=== PATIENT | male | born 1955 | race Caucasian/White ===

== ENCOUNTER 2016-08-26 10:08 | Emergency (ER) | payer SELFPAY ==
[2016-08-26 10:24] VITALS: BP 142/97
[2016-08-26] MEDS ORDERED: Aspirin Low Dose CHEW TAB* 81 MG PO ONE (10:24)
[2016-08-26] MEDS ORDERED: Nitroglycerin TAB 0.4 MG* 0.4 MG TAB SL ONE (10:32)
--- NOTE | 2016-08-26 10:51 | UC ---
Cardiac HPI - HPI Summary HPI Summary: SEVERAL DAYS OF INTERMITTENT MID STERNAL CP RADIATING DOWN LEFT ARM. HAS ASSOCIATED SOB, NAUSEA, DIZZINESS AND SWEATS. PAIN COMES ON RANDOMLY BOTH AT REST AND WITH EXERTION. BETTER WITH REST. NO PERSONAL H/O CARDIAC DISEASE. PAIN GOT WORSE THIS MORNING AT WORK. - History of Current Complaint Chief Complaint: UCChestPain Stated Complaint: CHEST PAIN Time Seen by Provider: 08/26/16 10:19 Hx Obtained From: Patient Onset/Duration: Gradual Onset, Lasting Days, Still Present Timing: Intermittent Episodes Lasting: Initial Severity: Mild Current Severity: Moderate Pain Intensity: 5 Chest Pain Location: Mid Sternal Character: Tightness Aggravating: Nothing - COMES ON RANDOMLY Alleviating: Rest Associated Signs & Symptoms: Positive: Chest Pain, Dizziness, SOB, Diaphoresis, Nausea/Vomiting - Allergy/Home Medications Allergies/Adverse Reactions: Allergies Allergy/AdvReac Type Severity Reaction Status Date / Time No Known Allergies Allergy Verified 08/26/16 10:18 PMH/Surg Hx/FS Hx/Imm Hx Endocrine History Of: Reports: Dyslipidemia - ELEVATED TG Respiratory History Of: Reports: COPD - Surgical History Surgical History: Yes Surgery Procedure, Year, and Place: left middle finger amputation - Family History Known Family History: Positive: Cardiac Disease - FATHER HAD [place] AGE ~90 - Social History Alcohol Use: Occasionally Substance Use Type: None Smoking Status (MU): Former Smoker - Immunization History Most Recent Tetanus Shot: not sure Review of Systems Constitutional: Negative Skin: Negative Respiratory: Shortness Of Breath Cardiovascular: Chest Pain Gastrointestinal: Other - NAUSEA All Other Systems Reviewed And Are Negative: Yes Physical Exam Triage Information Reviewed: Yes Appearance: Well-Appearing, No Pain Distress, Well-Nourished Vital Signs: Initial Vital Signs Temp 96.5 F 08/26/16 10:19 Pulse 83 08/26/16 10:19 Resp 16 08/26/16 10:19 BP 142/97 08/26/16 10:19 Pulse Ox 98 08/26/16 10:19 Vital Signs Reviewed: Yes Eyes: Positive: Conjunctiva Clear ENT: Positive: Hearing grossly normal Neck: Positive: Supple Respiratory Exam: Normal Cardiovascular Exam: Normal Abdomen Description: Positive: Soft Musculoskeletal: Positive: No Edema Neurological: Positive: Alert Psychological: Positive: Age Appropriate Behavior Skin: Negative: rashes Diagnostics - EKG Cardiac Rate: NL Cardiac Rhythm: Sinus: Normal Ectopy: None ST Segment: Non-Specific - ST-T WAVE FLATTENING LEADS II AND AVF. T WAVE INVERSION LEAD III - Assessment/Plan Course Of Treatment: PT FEELING WORSE WITH NAUSEA AND GAGGING JUST PRIOR TO DEPARTURE. EMS PRESENT. ASA 81MG X 4 AND NTG 0.4MG GIVEN - Differential Diagnoses - Chest Pain Differential Diagnosis/HQI/PQRI: Acute [place], ACS, Angina - Clinical Impression Provider Diagnoses: CHEST PAIN - Physician Notifications Discussed Patient Care With: EDUARDO REZA Time Discussed With Above Provider: 10:30 - DISCUSSED GIVING NTG IN SETTING OF POSSIBLE INFERIOR/RIGHT SIDED ETIOLOGY. GIVEN 5/10 DISCOMFORT WILL GIVE 1 DOSE Instructed by Provider To: Transfer - TO [facility] ER BY AMBULANCE Discharge - Discharge Plan Condition: Guarded Disposition: TRANS HIGHER LVL OF CARE FAC Referrals: Rosario Richard MD [Primary Care Provider] -
== END 2016-08-26 10:51 | disposition short-term general hospital (02) ==
LOC: UCEAST 10:08
DX: R07.89 Other chest pain (principal); R42 Dizziness and giddiness; R06.02 Shortness of breath; R11.2 Nausea with vomiting, unspecified; Z87.891 Personal history of nicotine dependence
CPT/HCPCS: 93005; 99213; A9270-GY; G0463

== ENCOUNTER 2016-08-26 11:12 | Emergency (ER) | payer BC ==
[2016-08-26] MEDS ORDERED: Aspirin Low Dose CHEW TAB* 81 MG PO ONE ×2 (11:40→13:28)
[2016-08-26] MEDS ORDERED: Nitroglycerin 0.4 MG/HR PATCH* (10 MG) TRANSDERM ONE (11:41)
[2016-08-26] MEDS ORDERED: NS 0.9% 1000 ML* 1,000 ML IV ONE (11:43)
[2016-08-26 11:57] LABS: Hematocrit 44 % (42-52); Hemoglobin 14.6 g/dl (14.0-18.0); Mean Corpuscular HGB Conc 33 g/dl (31-36); Mean Corpuscular Hemoglobin 30 pg (27-31); Mean Corpuscular Volume 90 fL (80-94); Mean Platelet Volume 8 um3 (7.4-10.4); Red Blood Count 4.87 10^6/ul (4.0-5.4); Red Cell Distribution Width 13 % (10.5-15); White Blood Count 5.6 10^3/ul (3.5-10.8)
[2016-08-26 12:10] LABS: Albumin 3.7 g/dL (3.2-5.2); BUN/Creatinine Ratio 14.7 (8-20); Calcium 8.8 mg/dL (8.6-10.3); EGFR African American 95.8 (>60); EGFR Non-African American 74.5 (>60); Globulin 2.6 g/dL (2-4); Potassium 4.1 mmol/L (3.5-5.0); Total Bilirubin 0.8 mg/dL (0.2-1.0); Total Protein 6.3 g/dL (6.4-8.9)
[2016-08-26 12:13] LABS: Troponin I 1.19 ng/mL (<0.04)
--- NOTE | 2016-08-26 12:18 | RAD ---
HISTORY: Chest pain COMPARISONS: None VIEWS:1: Single frontal portable view of the chest at 12:11 PM FINDINGS: LINES AND TUBES: None. CARDIOMEDIASTINAL SILHOUETTE: The cardiomediastinal silhouette is normal for portable technique. PLEURA: The costophrenic angles are sharp. No pleural abnormalities are noted. LUNG PARENCHYMA: The lungs are clear. ABDOMEN: The upper abdomen is clear. There is no subphrenic gas. BONES AND SOFT TISSUES: No bone or soft tissue abnormalities are noted. IMPRESSION: NO ACTIVE CARDIOPULMONARY DISEASE.
[2016-08-26] MEDS ORDERED: Heparin DRIP 25,000 UNITS(*) 25,000 UNITS/500 ML BAG IVPB SCH (13:15)
[2016-08-26] MEDS ORDERED: nitroGLYCERIN DRIP* 25,000 MCG in PREMIX* 0 ML IV ONE (13:19)
[2016-08-26] MEDS ORDERED: Diazepam TAB(*) 5 MG PO ONE (13:28)
[2016-08-26] MEDS ORDERED: diPHENhydraMINE PO* 25 MG PO ONE (13:28)
[2016-08-26] MEDS ORDERED: NS 0.9% 1000 ML* 1,000 ML IV SCH (13:30)
[2016-08-26] MEDS ORDERED: Heparin VIAL(*) 5000 UNITS/ML VIAL (FIVE THOUSAND) IV SCH (14:00)
[2016-08-26] MEDS ORDERED: Midazolam* 1 MG/ML 5 ML VIAL (5 MG) ONE (14:37)
[2016-08-26] MEDS ORDERED: fentaNYL* 50 MCG/ML 2 ML VIAL (100 MCG VIAL) ONE (14:37)
[2016-08-26] MEDS ORDERED: Iohexol 350 (CONTRAST) 200 ML MDV IV ONE (14:37)
[2016-08-26] MEDS ORDERED: Heparin 2 UNITS/ML IVPREMIX* 1,000 ML IV ONE (14:38)
[2016-08-26] MEDS ORDERED: Lidocaine 1% INJ* 10 MG/ML 30 ML SDV ONE (14:38)
[2016-08-26 14:44] VITALS: BP 108/84
[2016-08-26] MEDS ORDERED: Ticagrelor* 90 MG TAB PO ONE (15:31)
[2016-08-26] MEDS ORDERED: Heparin 2 UNITS/ML IVPREMIX* 2,000 ML IV ONE (15:51)
--- NOTE | 2016-08-26 19:18 | CONS ---
CARDIOLOGY CONSULTATION AND HISTORY AND PHYSICAL: DATE OF CONSULT: 08/26/16 INDICATION FOR CONSULT: Non-ST segment elevation myocardial infarction. HISTORY OF PRESENT ILLNESS: The patient is a 61-year-old gentleman with a distant history of smoking, who came to the emergency room because of chest pain. The patient states that last week, he was having episodes of chest pain while at work. He did not work over the weekend and did not have any further chest pain. He went to work today and while he was moving heavy objects around , he started having chest pain. His coworker stated he looked pale and uncomfortable. The patient stated he started having numbness in his left arm. He decided to come to the emergency room. On arrival to the emergency room, his EKG was unremarkable; however, his first troponin level was 1.19. In speaking with the patient at this time, he is still having some mild chest heaviness, he would rate it 2/10, maximum his chest pain was 6/10. PAST MEDICAL HISTORY: Significant for hypertriglyceridemia. PAST SURGICAL HISTORY: Tonsils and adenoids as a child, middle finger removal after a trauma. MEDICATIONS: He has been on TriCor in the past. ALLERGIES: No known drug allergies. FAMILY HISTORY: No family history of early coronary artery disease. REVIEW OF SYSTEMS: Negative for fevers or chills. Negative for changes in bowel or bladder habits. Negative for changes in weight. PHYSICAL EXAM: Height is 5 feet 6 inches, weight 235 pounds, heart rate is 74, blood pressure 115/85, respiratory rate is 16, oxygen saturation 99% on room air. Sclerae anicteric. Oropharynx is pink without erythema. Carotids are 2+ without bruits. JVD is normal. Thyroid is normal. Lungs are clear to auscultation. There is no dullness to percussion. Cardiac Exam: S1, S2 without any murmurs, rubs, or gallops. PMI is normal. Abdomen is obese, soft, nontender, nondistended with normoactive bowel sounds. Extremities show no edema. He has 2+ pulses throughout. The patient is awake, alert, and oriented. He moves all 4 extremities equally. DIAGNOSTIC STUDIES/LAB DATA: CBC within normal limits. Chemistries within normal limits. BUN 15, creatinine 1. Troponin 1.19. D-dimer was less than 200. EKG demonstrates normal sinus rhythm with nonspecific ST-T wave abnormalities. Chest x-ray is normal. IMPRESSION: This is a 61-year-old gentleman with little past medical history, who came to the emergency room because of chest pain. The patient's initial troponin level was abnormal of 1.19. The patient continues to have mild chest pain. The patient did receive nitroglycerin patch. The patient's symptoms and laboratory work are consistent with a non-ST segment elevation myocardial infarction. The patient has been given an aspirin, beta blockers. The patient will be started on statin therapy. The patient is recommended to undergo cardiac catheterization. The risks and benefits of this were described in detail. The patient is willing to proceed. RECOMMENDATION: Cardiac catheterization. CC: Dr. Richard* [id number]/[facility] #: [id number] ZULMA
--- NOTE | 2016-08-27 03:27 | TRS ---
TRANSFER SUMMARY: DATE OF ADMISSION: DATE OF TRANSFER: 08/26/16 Transferred to [facility] under the care of Dr. Jarred Lemus. INDICATION FOR TRANSFER: Critical coronary artery disease, non ST segment elevation myocardial infarction. Please see my admission history and physical and consultation for details of the patient's presentation. HISTORY: The patient is a 61-year-old gentleman with a little past medical history. He does have a history of hypertriglyceridemia who has been having chest pain on and off for approximately a week, came to the emergency room this morning with chest pain. His EKG did not show any acute ST changes. His initial troponin level was 1.19. Because of his convincing story and elevated troponin, the patient went directly to the cardiac catheterization lab. 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 In the cardiac catheterization lab, his left ventriculogram revealed normal LV function. He had inferior wall hypokinesis. His ejection fraction was 55%. There was mild mitral regurgitation. His coronary arteries demonstrated that his left main artery had a distal 70% stenosis and his left circumflex artery had an ostial 50% stenosis. His right coronary artery had a mid vessel 99% stenosis with TYRA-2 flow down the remainder of the right coronary artery. The patient was pain free on the table. Consultation was obtained with Dr. Dandre Linda and with Dr. Jarred Lemus regarding care of the patient. The decision was made to transfer the patient to [facility] for urgent coronary artery bypass surgery. The patient will remain on heparin and aspirin upon transfer. The patient is currently pain free. There was some discussion regarding stenting his right coronary artery with a bare metal stent and then coronary artery bypass surgery at some point in the future. However, the seriousness of his left main artery prompted urgent coronary artery bypass surgery. TRANSFER MEDICATIONS: 1. Aspirin 325 a day. 2. Heparin drip. 3. Normal saline at 100 cc per hour. ALLERGIES: None. DISPOSITION: The patient will be transferred to [facility]. This care was discussed with Dr. Lemus. TIME SPENT: Approximately 30 minutes were spent in critical care of the patient and multiple consultations with Dr. Linda and Dr. Lemus. A total of 2 hours were spent in coordination of the care of the patient. [id number]/[facility] #: [id number] [facility]
--- NOTE | 2016-08-27 03:35 | CATH ---
CARDIAC CATHETERIZATION: DATE OF PROCEDURE: 08/26/16 - EMERGENCY DEPT. PROCEDURE: Cardiac catheterization including left ventriculogram and coronary angiography, left heart catheterization. INDICATION: Non-ST segment elevation myocardial infarction, coronary artery disease. HISTORY OF PRESENT ILLNESS: The patient is a 61-year-old male with a history of hypertriglyceridemia, distant history of smoking who came to the emergency room because of crescendo angina and unstable angina. In the emergency room, his EKG showed no acute ischemic changes; however, he did have an elevated troponin level of 1.19. Because of his compelling story and elevated troponin level, cardiac catheterization was recommended. DESCRIPTION OF PROCEDURE: The patient was brought to the cardiac catheterization lab in a fasting state. Informed consent had been obtained prior to the procedure. All labs were reviewed. The patient was placed supine on the catheterization table. Both femoral areas were cleaned and draped in the usual fashion. 1% lidocaine was used for local anesthesia. The right femoral artery was entered by a modified Seldinger technique and a 6-Kuwaiti sheath introducer was placed. The patient underwent left ventriculogram coronary angiography using 6-Ku[place]i pigtail catheter and 6-Kuwaiti JL4 catheter and a 6-Ku[place]i JR4 catheter. At the end of the procedure, the femoral sheath was sewn into position and the patient was ready for transfer to [facility]. The patient tolerated the procedure well with no complications. A total of 2.8 minutes of fluoro time was used. A total of 80 cc of Omnipaque dye was used. FINDINGS: HEMODYNAMICS: Central aortic blood pressure 70/52 with a mean of 60, left ventricular pressure 72/7 with an end-diastolic pressure of 10. LEFT VENTRICULOGRAM: The left ventricle was normal in size and systolic function with estimated ejection fraction 55%. There is mild inferior wall hypokinesis. There is 1+ mitral regurgitation. The ascending aorta and aortic valve appear normal. CORONARY ARTERIES: 1. Left main artery. The left main was normal in size. It bifurcated into the LAD and circumflex. There was a tapering 70% stenosis to the distal left main artery. 2. Left anterior descending artery. 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 The remainder of the vessel and the first diagonal were without disease. 3. Left circumflex artery. The left circumflex artery had an ostial 50% stenosis. The remainder of the vessel was without disease. 4. Right coronary artery. The RCA was a large dominant vessel. It gave off the PDA. The proximal portion of the right coronary artery was without disease. The mid right coronary artery had a 99% stenosis of the right coronary artery with TYRA 2 flow to the remainder of the vessel. IMPRESSION: 1. Normal LV size and systolic function with inferior wall hypokinesis. 2. Critical stenosis to the right coronary artery with TYRA-2 flow after the 99 % stenosis. 3. 70% stenosis to the distal left main artery. RECOMMENDATIONS: The patient will be transferred to [facility] for consideration of urgent bypass surgery given his left main disease and critical right coronary artery. CC: Dr. Richard; Dr. Jarred Lemus, [facility] * [id number]/[facility] #: [id number] ZULMA
--- NOTE | 2016-08-27 16:30 | ED ---
I, Neymar,Quintin, scribed for Albaro Hand MD on 08/26/16 at 1146 . HPI Chest Pain - HPI Summary HPI Summary: This 61 y/o male presents to ED from urgent care for gradually worsening mid sternal CP that started 4 days ago but worse since this AM. CP was 8/10 this morning. CP is alleviated with NTG and now 2/10. Pt also reports nausea, pain/ numbness at LUE, and SOB. Deep breath makes CP worse. PMHx includes COPD and elevated triglycerides. Pt denies any recent stress. Pt is occasional drinker, former smoker, and does not abuse substances. FHx is negative for CAD -- Father had an NH in his 90s. - History of Current Complaint Chief Complaint: ED Time Seen by Provider: 08/26/16 11:15 Hx Obtained From: Patient Onset/Duration: Started Days Ago, Atraumatic, Still Present Timing: Constant Initial Severity: Severe Current Severity: Moderate Pain Intensity: 4 Pain Scale Used: 0-10 Numeric Chest Pain Location: Mid Sternal Chest Pain Radiates: No Character: Dull/Aching Aggravating Factor(s): Deep Breaths Alleviating Factor(s): Medication - NTG Associated Signs and Symptoms: Positive: Chest Pain, Shortness of Breath, Nausea. Negative: Fever - Allergy/Home Medications Allergies/Adverse Reactions: Allergies Allergy/AdvReac Type Severity Reaction Status Date / Time No Known Allergies Allergy Verified 08/26/16 10:18 PMH/Surg Hx/FS Hx/Imm Hx Cardiovascular History: Reports: Other Cardiovascular Problems/Disorders - Elevated TG Respiratory History: Reports: Hx Chronic Obstructive Pulmonary Disease (COPD) - Surgical History Surgery Procedure, Year, and Place: left middle finger amputation Infectious Disease History: No Infectious Disease History: Denies: History Other Infectious Disease, Traveled Outside the [place] in Last 30 Days - Family History Known Family History: Negative: Cardiac Disease - Social History Alcohol Use: Occasionally Hx Substance Use: No Substance Use Type: Reports: None Hx Tobacco Use: Yes Smoking Status (MU): Former Smoker Review of Systems Negative: Fever, Chills Negative: Erythema Negative: Sore Throat Positive: Chest Pain. Negative: Palpitations Positive: Shortness Of Breath Positive: Nausea. Negative: Abdominal Pain Negative: dysuria, hematuria Negative: Myalgia, Edema Neurological: Other - negative for dizziness All Other Systems Reviewed And Are Negative: Yes Physical Exam - Summary Physical Exam Summary: Constitutional: Well-developed, Well-nourished, Alert. (-) Distressed Skin: Warm, Dry HENT: Normocephalic; Atraumatic Eyes: Conjunctiva normal Neck: Musculoskeletal ROM normal neck. (-) JVD, (-) Stridor, (-) Tracheal deviation Cardio: Rhythm regular, rate normal, Heart sounds normal; Intact distal pulses; The pedal pulses are 2+ and symmetric. Radial pulses are 2+ and symmetric. (-) Murmur Pulmonary/Chest wall: Effort normal. (-) Respiratory distress, (-) Wheezes, (-) Rales Abd: Soft, (-) Tenderness, (-) Distension, (-) Guarding, (-) Rebound Musculoskeletal: (-) Edema Lymph: (-) Cervical adenopathy Neuro: Alert, Oriented x3 Psych: Mood and affect Normal Triage Information Reviewed: Yes Vital Signs On Initial Exam: Initial Vitals Temp Pulse Resp BP Pulse Ox 97.6 F 70 14 121/85 97 08/26/16 11:14 08/26/16 11:14 08/26/16 11:14 08/26/16 11:14 08/26/16 11:14 Vital Signs Reviewed: Yes Diagnostics - Vital Signs Vital Signs Temp Pulse Resp BP Pulse Ox 08/26/16 11:14 97.6 F 70 14 121/85 97 - Laboratory Lab Results: Lab Results 08/26/16 08/26/16 08/26/16 Range/Units 11:30 11:30 11:30 WBC 5.6 (3.5-10.8) 10^3/ul RBC 4.87 (4.0-5.4) 10^6/ul Hgb 14.6 (14.0-18.0) g/dl Hct 44 (42-52) % MCV 90 (80-94) fL MCH 30 (27-31) pg MCHC 33 (31-36) g/dl RDW 13 (10.5-15) % Plt Count 244 (150-450) 10^3/ul MPV 8 (7.4-10.4) um3 Neut % (Auto) 69.3 (38-83) % Lymph % (Auto) 17.0 L (25-47) % Fergus % (Auto) 12.1 H (1-9) % Eos % (Auto) 1.0 (0-6) % Baso % (Auto) 0.6 (0-2) % Absolute Neuts (auto) 3.9 (1.5-7.7) 10^3/ul Absolute Lymphs (auto) 1.0 (1.0-4.8) 10^3/ul Absolute Monos (auto) 0.7 (0-0.8) 10^3/ul Absolute Eos (auto) 0.1 (0-0.6) 10^3/ul Absolute Basos (auto) 0 (0-0.2) 10^3/ul Absolute Nucleated RBC 0 10^3/ul Nucleated RBC % 0 D-Dimer, Quantitative (Less Than 230) ng/mL Sodium 136 (133-145) mmol/L Potassium 4.1 (3.5-5.0) mmol/L Chloride 103 (101-111) mmol/L Carbon Dioxide 28 (22-32) mmol/L Anion Gap 5 (2-11) mmol/L BUN 15 (6-24) mg/dL Creatinine 1.02 (0.67-1.17) mg/dL Est GFR ( Amer) 95.8 (>60) Est GFR (Non-Af Amer) 74.5 (>60) BUN/Creatinine Ratio 14.7 (8-20) Glucose 133 H (70-100) mg/dL Lactic Acid 1.4 (0.5-2.0) mmol/L Calcium 8.8 (8.6-10.3) mg/dL Total Bilirubin 0.80 (0.2-1.0) mg/dL AST 28 (13-39) U/L ALT 29 (7-52) U/L Alkaline Phosphatase 79 (34-104) U/L Troponin I 1.19 H* (<0.04) ng/mL Total Protein 6.3 L (6.4-8.9) g/dL Albumin 3.7 (3.2-5.2) g/dL Globulin 2.6 (2-4) g/dL Albumin/Globulin Ratio 1.4 (1-3) 08/26/16 Range/Units 11:30 WBC (3.5-10.8) 10^3/ul RBC (4.0-5.4) 10^6/ul Hgb (14.0-18.0) g/dl Hct (42-52) % MCV (80-94) fL MCH (27-31) pg MCHC (31-36) g/dl RDW (10.5-15) % Plt Count (150-450) 10^3/ul MPV (7.4-10.4) um3 Neut % (Auto) (38-83) % Lymph % (Auto) (25-47) % Fergus % (Auto) (1-9) % Eos % (Auto) (0-6) % Baso % (Auto) (0-2) % Absolute Neuts (auto) (1.5-7.7) 10^3/ul Absolute Lymphs (auto) (1.0-4.8) 10^3/ul Absolute Monos (auto) (0-0.8) 10^3/ul Absolute Eos (auto) (0-0.6) 10^3/ul Absolute Basos (auto) (0-0.2) 10^3/ul Absolute Nucleated RBC 10^3/ul Nucleated RBC % D-Dimer, Quantitative < 200 (Less Than 230) ng/mL Sodium (133-145) mmol/L Potassium (3.5-5.0) mmol/L Chloride (101-111) mmol/L Carbon Dioxide (22-32) mmol/L Anion Gap (2-11) mmol/L BUN (6-24) mg/dL Creatinine (0.67-1.17) mg/dL Est GFR ( Amer) (>60) Est GFR (Non-Af Amer) (>60) BUN/Creatinine Ratio (8-20) Glucose (70-100) mg/dL Lactic Acid (0.5-2.0) mmol/L Calcium (8.6-10.3) mg/dL Total Bilirubin (0.2-1.0) mg/dL AST (13-39) U/L ALT (7-52) U/L Alkaline Phosphatase (34-104) U/L Troponin I (<0.04) ng/mL Total Protein (6.4-8.9) g/dL Albumin (3.2-5.2) g/dL Globulin (2-4) g/dL Albumin/Globulin Ratio (1-3) Result Diagrams: 08/26/16 11:30 08/26/16 11:30 Lab Statement: Any lab studies that have been ordered have been reviewed, and results considered in the medical decision making process. - Radiology CXR Xray Interpretation: No Acute Changes Radiology Interpretation Completed By: Radiologist - EKG 1110 Cardiac Rate: NL - 69 bpm EKG Rhythm: Sinus Rhythm Re-Evaluation - Re-Evaluation 1 Re-Evaluation Time: 13:13 Change: Improved Comment: Discussing lab results with pt, shows NH. Pt mildly improved. 2 out of 10 pain. Chest Pain Course/Dx - Course Course Of Treatment: MDM: A 61 y/o M, with COPD and no prev CAD, presents with mid-sternal CP onset 4 days ago, worsened this AM. EKG is NSR. D-dimer is < 200. CXR shows no acute changes. Trop levels are 1.19 at [address] Baer, whe approved admission. Pt will be sent for cardiac catherization this afternoon. - Diagnoses Provider Diagnoses: NSTEMI (non-ST elevated myocardial infarction) - Provider Notifications Discussed Care Of Patient With: Dr. Baer, cardiology Time Discussed With Above Provider: 13:14 Instructed by Provider To: Admit As Inpatient - Critical Care Time Critical Care Time: 30-74 min - 45 mins Discharge - Discharge Plan Condition: Critical Disposition: ADMITTED TO [facility] Referrals: Rosario Richard MD [Primary Care Provider] - The documentation as recorded by the Neymar gagnon Soohyun accurately reflects the service I personally performed and the decisions made by me, Albaro Hand MD.
== END 2016-08-26 14:45 | disposition short-term general hospital (02) ==
LOC: ED 11:12
DX: I21.4 Non-ST elevation (NSTEMI) myocardial infarction (principal); R07.9 Chest pain, unspecified; R06.02 Shortness of breath; R11.0 Nausea; Z87.891 Personal history of nicotine dependence
CPT/HCPCS: 36415; 71010; 80053; 83605; 84484; 85025; 85379; 93005; 93458; 99285; A9270-GY; C1887; J1644; J2250; J3010

== ENCOUNTER 2016-11-28 07:37 | Emergency (ER) | payer BC ==
[2016-11-28] MEDS ORDERED: Aspirin Low Dose CHEW TAB* 81 MG PO ONE (07:58)
[2016-11-28 07:59] VITALS: BP 118/93
[2016-11-28] MEDS ORDERED: Nitroglycerin TAB 0.4 MG* 0.4 MG TAB SL ONE (07:59)
[2016-11-28] MEDS ORDERED: Nitroglycerin TAB 0.4 MG* 0.4 MG TAB ONE (07:59)
[2016-11-28] MEDS ORDERED: Aspirin Low Dose CHEW TAB* 81 MG ONE (07:59)
--- NOTE | 2016-11-28 08:20 | UC ---
Cardiac HPI - HPI Summary HPI Summary: ONSET OF MID STERNAL/LEFT SIDED CHEST PRESSURE LAST NIGHT WHILE AT REST. HAS BEEN CONSTANT SINCE THEN 01/31. NO RADIATION. H/O 3V CABG 08/27/2016 AT [facility]. 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 CARDIAC REHAB SESSION YESTERDAY. HAS SOME ASSOCIATED SOB BUT NO NAUSEA OR SWEATS. TOOK 2 BABY ASA THIS MORNING. PCP DR. RICHARD. 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 - History of Current Complaint Chief Complaint: UCChestPain Stated Complaint: CHEST PAIN Time Seen by Provider: 11/28/16 07:39 Hx Obtained From: Patient Onset/Duration: Sudden Onset Timing: Constant Initial Severity: Moderate Current Severity: Moderate Pain Intensity: 6 Chest Pain Location: Mid Sternal, Left Anterior Character: Pressure/Squeezing Aggravating: Movement Alleviating: Nothing Associated Signs & Symptoms: Positive: Chest Pain, SOB. Negative: Diaphoresis, Nausea/Vomiting, Cough, Back Pain - Allergy/Home Medications Allergies/Adverse Reactions: Allergies Allergy/AdvReac Type Severity Reaction Status Date / Time Seasonal and Environmental Allergy Congestion Uncoded 11/28/16 08:00 ALlergie Home Medications: Home Medications Aspirin [Aspirin 81 MG TAB] 3 tab PO DAILY 11/28/16 [History Confirmed 11/28/16] Atorvastatin* [Lipitor 40 MG*] 1 tab PO DAILY 11/28/16 [History Confirmed ] Fexofenadine (NF) [Linda 180 (NF)] 1 tab PO DAILY PRN 11/28/16 [History Confirmed 11/28/16] Fluticasone-Salmeterol 250-50* [Advair Diskus 250-50*] 1 puff INH BID 11/28/16 [ History Confirmed 11/28/16] Metoprolol Tartrate TAB* [Lopressor TAB*] 1 tab PO BID 11/28/16 [History Confirmed 11/28/16] PMH/Surg Hx/FS Hx/Imm Hx Endocrine History Of: Reports: Dyslipidemia - ELEVATED TG Denies: Diabetes, Thyroid Disease Cardiovascular History Of: Reports: Cardiac Disorders - triple bypass, [place] Denies: Hypertension Respiratory History Of: Reports: COPD, Asthma GI/ History Of: Denies: Ulcer - Surgical History Surgical History: Yes Surgery Procedure, Year, and Place: left middle finger amputation. Triple Bypass. tonsillectomy - Family History Known Family History: Positive: Cardiac Disease - Social History Alcohol Use: Rare Substance Use Type: None Smoking Status (MU): Former Smoker When Did the Patient Quit Smoking/Using Tobacco: 10 years ago - Immunization History Most Recent Influenza Vaccination: 2015/2016 season Most Recent Tetanus Shot: not sure Review of Systems Constitutional: Negative Respiratory: Shortness Of Breath Cardiovascular: Chest Pain Gastrointestinal: Negative All Other Systems Reviewed And Are Negative: Yes Physical Exam Triage Information Reviewed: Yes Appearance: Well-Appearing, No Pain Distress, Well-Nourished Vital Signs: Initial Vital Signs Temp 96.1 F 11/28/16 07:42 Pulse 79 11/28/16 07:42 Resp 18 11/28/16 07:42 BP 118/93 11/28/16 07:42 Pulse Ox 97 11/28/16 07:42 Vital Signs Reviewed: Yes Eyes: Positive: Conjunctiva Clear ENT: Positive: Hearing grossly normal Neck: Positive: Supple Respiratory Exam: Normal Cardiovascular Exam: Normal Abdomen Description: Positive: Soft Musculoskeletal: Positive: No Edema Neurological: Positive: Alert. Negative: Muscle Tone Normal Psychological: Positive: Age Appropriate Behavior Skin: Negative: rashes Diagnostics - EKG Cardiac Rate: NL - 77 BPM Cardiac Rhythm: Sinus: Normal Ectopy: PVCs ST Segment: Normal - Differential Diagnoses - Chest Pain Differential Diagnosis/HQI/PQRI: Acute [place], ACS, Angina, Chest Wall - Clinical Impression Provider Diagnoses: CHEST PAIN - Physician Notifications Discussed Patient Care With: DR. COREAS Time Discussed With Above Provider: 08:00 - TO [facility] [place]ULANCE Instructed by Provider To: Will See In ED Discharge - Discharge Plan Condition: Stable Disposition: TRANS [facility] CARE [facility] Referrals: Rosario Richard MD [Primary Care Provider] -
[2016-11-28] MEDS ORDERED: NS 0.9% 250 ML* 250 ML IV SCH (09:00)
== END 2016-11-28 08:20 | disposition short-term general hospital (02) ==
LOC: UCEAST 07:37
DX: R07.9 Chest pain, unspecified (principal); E78.5 Hyperlipidemia, unspecified; J44.9 Chronic obstructive pulmonary disease, unspecified; Z87.891 Personal history of nicotine dependence; Z79.82 Long term (current) use of aspirin
CPT/HCPCS: 93005; 99214; A9270-GY; G0463

== ENCOUNTER 2016-11-28 08:35 | Observation (INO) | payer BC ==
[2016-11-28 09:15] LABS: Hematocrit 40 % (42-52); Hemoglobin 13.2 g/dl (14.0-18.0); Mean Corpuscular HGB Conc 33 g/dl (31-36); Mean Corpuscular Hemoglobin 28 pg (27-31); Mean Corpuscular Volume 86 fL (80-94); Mean Platelet Volume 8 um3 (7.4-10.4); Red Blood Count 4.66 10^6/ul (4.0-5.4); Red Cell Distribution Width 16 % (10.5-15); White Blood Count 6.8 10^3/ul (3.5-10.8)
[2016-11-28 09:26] LABS: BUN/Creatinine Ratio 18.3 (8-20); Calcium 9.3 mg/dL (8.6-10.3); EGFR African American 123.3 (>60); EGFR Non-African American 95.8 (>60); Globulin 2.4 g/dL (2-4); Potassium 4.1 mmol/L (3.5-5.0); Total Bilirubin 0.9 mg/dL (0.2-1.0); Total Protein 6.4 g/dL (6.4-8.9)
--- NOTE | 2016-11-28 09:26 | RAD ---
INDICATION: Chest pain. COMPARISON: Comparison is made with a prior chest x-ray study from August 26, 2016. TECHNIQUE: A portable view of the chest was obtained. FINDINGS: The patient has had coronary artery bypass surgery since the prior study. Note is made of multiple sternal sutures and mediastinal clips. The heart is within normal limits in size although appears slightly more prominent than on the prior exam. There is slight hazy density which projects over the left heart border extending superiorly toward the aorta likely representing post surgical changes although nonspecific. The lungs are clear. No pleural effusion is seen. The results of this exam were discussed with the referring clinician. IMPRESSION: MILD HAZY DENSITY OVER THE CARDIAC REGION RECOMMEND PA AND LATERAL CHEST FILMS FOR FURTHER EVALUATION.
[2016-11-28 09:29] LABS: Troponin I 0.01 ng/mL (<0.04)
[2016-11-28 09:39] LABS: T4 7.42 g/dL (6.09-12.23)
[2016-11-28 09:40] LABS: TSH (Thyroid Stimulating Horm) 1.1 mcIU/mL (0.34-5.60)
--- NOTE | 2016-11-28 09:51 | RAD ---
INDICATION: Chest pain. Previous coronary artery bypass in August 2016. Chronic obstructive pulmonary disease. Indeterminate haziness over the LEFT heart margin on portable chest radiograph of the same date. COMPARISON: 0758 hours report of a chest radiograph of the same date. TECHNIQUE: Dual energy PA and routine lateral views of the chest were obtained. REPORT: LEFT epicardial fat pad noted. No focal pulmonary lesion, alveolar consolidation, pleural effusion, pneumothorax. Median sternotomy wires. Mediastinal vascular clips. Negative for cardiomegaly. Unremarkable central pulmonary vasculature. Unremarkable contour of the thoracic aorta accounting for mild S-shaped curve of the spine convex to the RIGHT superiorly and to the LEFT in the mid to distal segment. IMPRESSION: No radiographic evidence for presence of an acute cardiac or pulmonary process. Postsurgical change of coronary artery bypass.
[2016-11-28 10:59] LABS: Urine Bilirubin Negative (Negative); Urine Glucose Negative (Negative); Urine Nitrite Negative (Negative)
[2016-11-28] MEDS ORDERED: Ondansetron INJ* 2 MG/ML VIAL IV PRN (11:42)
[2016-11-28] MEDS ORDERED: Acetaminophen TAB* 325 MG PO PRN (11:42)
[2016-11-28] MEDS ORDERED: Cetirizine* 10 MG TAB PO PRN (11:44)
--- NOTE | 2016-11-28 12:23 | ED ---
Denzel Mccarthy Alok, scribed for Gaurav Suresh MD on 11/28/16 at 0846 . HPI Chest Pain - HPI Summary HPI Summary: 61 y/o male presents to the ED for CP starting last night at 2100. Pt states that he last had triple bypass surgery 3 months ago and that today his CP is right along that surgical incision at the mid-sternal without radiation to other parts of the body. Pt states that his pain feels different from a [place] and feels more "muscular". His pain registers at a 2 out of 10 in severity and is aggravated by arm movement and alleviated while arms are at rest. Pt also took NTG and aspirin which alleviated CP somewhat. Pt also notes SOB. Pt denies nausea, dizziness, or diaphoresis. - History of Current Complaint Chief Complaint: EDChestPainROMI Hx Obtained From: Patient Onset/Duration: Started Hours Ago, Atraumatic, Still Present Timing: Constant Initial Severity: Moderate Current Severity: Moderate Pain Intensity: 2 Pain Scale Used: 0-10 Numeric Chest Pain Location: Discrete at:, Mid Sternal Chest Pain Radiates: No Character: Other: - "Muscular" Aggravating Factor(s): Movement Alleviating Factor(s): Rest, NTG 123, OTC Meds - Aspirin Associated Signs and Symptoms: Positive: Chest Pain, Shortness of Breath. Negative: Dizziness, Diaphoresis, Nausea - Allergy/Home Medications Allergies/Adverse Reactions: Allergies Allergy/AdvReac Type Severity Reaction Status Date / Time Seasonal and Environmental Allergy Congestion Uncoded 11/28/16 08:49 ALlergie PMH/Surg Hx/FS Hx/Imm Hx Endocrine/Hematology History: Denies: Hx Diabetes, Hx Thyroid Disease Cardiovascular History: Reports: Other Cardiovascular Problems/Disorders - Elevated TG Denies: Hx Hypertension Respiratory History: Reports: Hx Asthma, Hx Chronic Obstructive Pulmonary Disease (COPD) GI History: Denies: Hx Ulcer - Surgical History Surgery Procedure, Year, and Place: left middle finger amputation. Triple Bypass. tonsillectomy Infectious Disease History: Denies: Hx Clostridium Difficile, Hx Hepatitis, Hx Human Immunodeficiency Virus (HIV), Hx of Known/Suspected MRSA, Hx Shingles, Hx Tuberculosis, Hx Known/ Suspected VRE, Hx Known/Suspected VRSA, History Other Infectious Disease, Traveled Outside the [place] in Last 30 Days - Family History Known Family History: Negative: Cardiac Disease - Social History Occupation: Employed Full-time Lives: With Family - Alcohol Use: Rare Hx Substance Use: No Substance Use Type: Reports: None Hx Tobacco Use: Yes Smoking Status (MU): Former Smoker Review of Systems Negative: Fever, Skin Diaphoresis Positive: Chest Pain Positive: Shortness Of Breath Negative: Nausea Neurological: Other - Negative: Dizziness All Other Systems Reviewed And Are Negative: Yes Physical Exam - Summary Physical Exam Summary: VITAL SIGNS: Reviewed. GENERAL: ~Patient is a well developed and nourished male who is lying comfortable in the stretcher. ~Patient is not in any acute respiratory distress. HEAD AND FACE: Normocephalic EYES: PERRLA, EOMI x 2. EARS: Hearing grossly intact. MOUTH: Oropharynx within normal limits. NECK: Supple, trachea is midline, no adenopathy, no JVD, no carotid bruit. CHEST: Well healed scar center of chest. Positive tenderness to palpation. LUNGS: Clear to auscultation bilaterally. No wheezing or crackles. CVS: Regular rate and rhythm, S1 and S2 present, no murmurs or gallops appreciated. ABDOMEN: Soft, non-tender. Bowel sounds are normal. No abdominal abnormal pulsations. EXTREMITIES: Full ROM in all major joints, no edema, no cyanosis or clubbing. NEURO: Alert and oriented x 3. No acute neurological deficits. Speech is normal and follows commands. SKIN: Dry and warm Triage Information Reviewed: Yes Vital Signs On Initial Exam: Initial Vitals Temp Pulse Resp BP Pulse Ox 97.4 F 73 16 114/86 98 11/28/16 08:37 11/28/16 08:37 11/28/16 08:37 11/28/16 08:37 11/28/16 08:37 Vital Signs Reviewed: Yes Diagnostics - Vital Signs Vital Signs Temp Pulse Resp BP Pulse Ox 11/28/16 08:37 97.4 F 73 16 114/86 98 - Laboratory Lab Results: Lab Results 11/28/16 11/28/16 11/28/16 Range/Units 08:05 08:05 08:05 WBC 6.8 (3.5-10.8) 10^3/ul RBC 4.66 (4.0-5.4) 10^6/ul Hgb 13.2 L (14.0-18.0) g/dl Hct 40 L (42-52) % MCV 86 (80-94) fL MCH 28 (27-31) pg MCHC 33 (31-36) g/dl RDW 16 H (10.5-15) % Plt Count 270 (150-450) 10^3/ul MPV 8 (7.4-10.4) um3 Neut % (Auto) 65.8 (38-83) % Lymph % (Auto) 21.6 L (25-47) % Reeves % (Auto) 9.1 H (1-9) % Eos % (Auto) 2.9 (0-6) % Baso % (Auto) 0.6 (0-2) % Absolute Neuts (auto) 4.4 (1.5-7.7) 10^3/ul Absolute Lymphs (auto) 1.5 (1.0-4.8) 10^3/ul Absolute Monos (auto) 0.6 (0-0.8) 10^3/ul Absolute Eos (auto) 0.2 (0-0.6) 10^3/ul Absolute Basos (auto) 0 (0-0.2) 10^3/ul Absolute Nucleated RBC 0 10^3/ul Nucleated RBC % 0.1 INR (Anticoag Therapy) 0.96 (0.89-1.11) APTT 32.0 (26.0-36.3) seconds Sodium 137 (133-145) mmol/L Potassium 4.1 (3.5-5.0) mmol/L Chloride 104 (101-111) mmol/L Carbon Dioxide 26 (22-32) mmol/L Anion Gap 7 (2-11) mmol/L BUN 15 (6-24) mg/dL Creatinine 0.82 (0.67-1.17) mg/dL Est GFR ( Amer) 123.3 (>60) Est GFR (Non-Af Amer) 95.8 (>60) BUN/Creatinine Ratio 18.3 (8-20) Glucose 108 H (70-100) mg/dL Lactic Acid (0.5-2.0) mmol/L Calcium 9.3 (8.6-10.3) mg/dL Magnesium 2.0 (1.9-2.7) mg/dL Total Bilirubin 0.90 (0.2-1.0) mg/dL AST 18 (13-39) U/L ALT 22 (7-52) U/L Alkaline Phosphatase 88 (34-104) U/L Total Creatine Kinase 102 (10-223) U/L CK-MB (CK-2) 3.3 (0.6-6.3) ng/mL Troponin I 0.01 (<0.04) ng/mL B-Natriuretic Peptide ( - 100) pg/mL Total Protein 6.4 (6.4-8.9) g/dL Albumin 4.0 (3.2-5.2) g/dL Globulin 2.4 (2-4) g/dL Albumin/Globulin Ratio 1.7 (1-3) TSH 1.10 (0.34-5.60) mcIU/mL Thyroxine (T4) 7.42 (6.09-12.23) g/dL Urine Color Urine Appearance Urine pH (5-9) Ur Specific [place] (1.010-1.030) Urine Protein (Negative) Urine Ketones (Negative) Urine Blood (Negative) Urine Nitrate (Negative) Urine Bilirubin (Negative) Urine Urobilinogen (Negative) Ur Leukocyte Esterase (Negative) Urine Glucose (Negative) 11/28/16 11/28/16 11/28/16 Range/Units 08:05 08:05 10:37 WBC (3.5-10.8) 10^3/ul RBC (4.0-5.4) 10^6/ul Hgb (14.0-18.0) g/dl Hct (42-52) % MCV (80-94) fL MCH (27-31) pg MCHC (31-36) g/dl RDW (10.5-15) % Plt Count (150-450) 10^3/ul MPV (7.4-10.4) um3 Neut % (Auto) (38-83) % Lymph % (Auto) (25-47) % Reeves % (Auto) (1-9) % Eos % (Auto) (0-6) % Baso % (Auto) (0-2) % Absolute Neuts (auto) (1.5-7.7) 10^3/ul Absolute Lymphs (auto) (1.0-4.8) 10^3/ul Absolute Monos (auto) (0-0.8) 10^3/ul Absolute Eos (auto) (0-0.6) 10^3/ul Absolute Basos (auto) (0-0.2) 10^3/ul Absolute Nucleated RBC 10^3/ul Nucleated RBC % INR (Anticoag Therapy) (0.89-1.11) APTT (26.0-36.3) seconds Sodium (133-145) mmol/L Potassium (3.5-5.0) mmol/L Chloride (101-111) mmol/L Carbon Dioxide (22-32) mmol/L Anion Gap (2-11) mmol/L BUN (6-24) mg/dL Creatinine (0.67-1.17) mg/dL Est GFR ( Amer) (>60) Est GFR (Non-Af Amer) (>60) BUN/Creatinine Ratio (8-20) Glucose (70-100) mg/dL Lactic Acid 0.8 (0.5-2.0) mmol/L Calcium (8.6-10.3) mg/dL Magnesium (1.9-2.7) mg/dL Total Bilirubin (0.2-1.0) mg/dL AST (13-39) U/L ALT (7-52) U/L Alkaline Phosphatase (34-104) U/L Total Creatine Kinase (10-223) U/L CK-MB (CK-2) (0.6-6.3) ng/mL Troponin I (<0.04) ng/mL B-Natriuretic Peptide 33 ( - 100) pg/mL Total Protein (6.4-8.9) g/dL Albumin (3.2-5.2) g/dL Globulin (2-4) g/dL Albumin/Globulin Ratio (1-3) TSH (0.34-5.60) mcIU/mL Thyroxine (T4) (6.09-12.23) g/dL Urine Color Yellow Urine Appearance Clear Urine pH 5.0 (5-9) Ur Specific [place] 1.023 (1.010-1.030) Urine Protein Negative (Negative) Urine Ketones Trace H (Negative) Urine Blood Negative (Negative) Urine Nitrate Negative (Negative) Urine Bilirubin Negative (Negative) Urine Urobilinogen Negative (Negative) Ur Leukocyte Esterase Negative (Negative) Urine Glucose Negative (Negative) Result Diagrams: 11/28/16 08:05 11/28/16 08:05 Lab Statement: Any lab studies that have been ordered have been reviewed, and results considered in the medical decision making process. - Radiology CXR 0841 Xray Interpretation: Positive (See Comments) - IMPRESSION: MILD HAZY DENSITY OVER THE CARDIAC REGION RECOMMEND PA AND LATERAL CHEST FILMS FOR FURTHER EVALUATION. Radiology Interpretation Completed By: Radiologist CXR 0921 Xray Interpretation: Positive (See Comments) - IMPRESSION: No radiographic evidence for presence of an acute cardiac or pulmonary process. Postsurgical change of coronary artery bypass. Radiology Interpretation Completed By: Radiologist - EKG 0832 Cardiac Rate: NL EKG Rhythm: Sinus Rhythm - 73 bpm EKG Interpretation: No ST elevation. Q-wave in II and aVF Chest Pain Course/Dx - Course Course Of Treatment: 61 y/o male presents to the ED for CP starting last night at 2100. Pt states that he last had triple bypass surgery 3 months ago and that today his CP is right along that surgical incision at the mid-sternal without radiation to other parts of the body. Pt states that his pain feels different from a [place] and feels more "muscular". His pain registers at a 2 out of 10 in severity and is aggravated by arm movement and alleviated while arms are at rest. Pt also took NTG and aspirin which alleviated CP somewhat. Pt also notes SOB. Pt denies nausea, dizziness, or diaphoresis. Assessment/Plan: Blood work wnl except for mild anemia. Troponin is 0.01. UA is negative. CXR IMPRESSION: MILD HAZY DENSITY OVER THE CARDIAC REGION RECOMMEND PA AND LATERAL CHEST FILMS FOR FURTHER EVALUATION. 2nd CXR requested by Dr. Dalal (Radiology). IMPRESSION: No radiographic evidence for presence of an acute cardiac or pulmonary process. Postsurgical change of coronary artery bypass. Patients pain was resolved with ASA and nitroglycerin given at the . At this time he is asymptomatic. Because of his comorbidities I discuss my physical exam, findings and test results with Dr. Gardner from the hospitalist services and she agrees to admit patient to his services. Patient is hemodynamically stable alert and oriented x 3. - Chest Pain Differential Diagnosis/HQI/PQRI: Acute [place], ACS, Angina, CHF, Chest Wall, GI Disease, Lower Respiratory Infection - Diagnoses Provider Diagnoses: Chest pain r/o ACS - Provider Notifications Discussed Care Of Patient With: Dr. Dalal (Radiology) @ 09 Discharge - Discharge Plan Condition: Stable Disposition: ADMITTED TO [facility] documentation as recorded by the Denzel gagnon Alok accurately reflects the service I personally performed and the decisions made by , Gaurav Suresh MD.
[2016-11-28] MEDS ORDERED: Heparin VIAL(*) 5000 UNITS/ML VIAL (FIVE THOUSAND) SUBCUT SCH (14:00)
--- NOTE | 2016-11-28 15:03 | HP ---
HISTORY AND PHYSICAL: DATE OF ADMISSION: 11/28/16 PRIMARY CARE PROVIDER: Dr. Richard. PRIMARY FRONT OFFICE HELP: Dr. Yuniel Baer. MY ATTENDING PHYSICIAN WHILE IN THE HOSPITAL: Dr. Dina Bhatt* (report dictated by Gregor Gordon NP). CHIEF COMPLAINT: Chest pain. HISTORY OF PRESENT ILLNESS: Mr. Clancy is a 61-year-old male patient who was recently here in the beginning of August, underwent a heart catheterization, found to have triple-vessel disease, went to [facility] and received the CABG, triple bypass. He had been doing well with [facility]. He has been doing well with his rehab. In addition to this, he actually was cleared for work beginning of this week. He says that he had not been having any chest pain with the exception he noticed at times at work that he would get some chest heaviness and sometimes shortness of breath particularly if he was lifting anything. When he stopped doing what he was doing and he sat down, the discomfort went away. He noticed today and last night. He went to [facility], did his workout, and he also went to work afterwards, and he noticed around 2100 last night, he had chest discomfort that was constant throughout the entire night, worse when he moved his arms and he had tenderness in his chest; however, he was concerned because the discomfort was near where he had chest discomfort previously and it was not nearly as intense, so he went to Urgent Care today. He received nitro and aspirin and the pain went away and he was sent to the hospital for further evaluation. He denies any chest pain currently. He says he is feeling well and he does say that his chest feels tender when he touches it. He states that the pain was mostly that he had was right at the incision and did not radiate down the arm, he had no associated shortness of breath or nausea or any diaphoresis. He came in. Unfortunately, we tried to set up a stress test but he had drunk coffee and had taken his metoprolol already today, so we are unable to do stress test. The hospitalist service though was asked to evaluate because of his significant risk factors for coronary artery disease and acute coronary syndrome. He denied any recent fevers, chills. No upper respiratory symptoms. He denied having any worsening pain with position change and he denied any calf pain or leg pain, but again because of his risk factors, we were asked to evaluate in admission. PAST MEDICAL HISTORY: Significant for: 1. GA. 2. CAD. 3. Hypertriglyceridemia. 4. COPD. PAST SURGICAL HISTORY: He has had: 1. CABG. 2. Tonsillectomy. MEDICATIONS: The home meds include: 1. Metoprolol 25 mg p.o. twice a day. 2. Advair 1 puff inhaled b.i.d. 3. Fexofenadine 1 tablet p.o. daily as needed. 4. Lipitor 40 mg daily. 5. Aspirin 81 mg at bedtime. 6. Aspirin 162 mg in the morning. ALLERGIES TO MEDICATIONS: Include no known drug allergies. FAMILY HISTORY: His father had CAD. His mother's history was reviewed and noncontributory. SOCIAL HISTORY: He is a former smoker. He rarely drinks alcohol. He is . Surrogate decision maker is his . REVIEW OF SYSTEMS: There is no documented fever. He denied having any significant weight change. There was no double vision. He denies having any ear discharge. There is no rhinorrhea. No sore throat. No thyroid enlargement. He did admit to having chest pain from my HPI. There was no orthopnea. No nocturnal dyspnea. There is no abdominal pain. There was no nausea, no vomiting. No dysuria, no frequency. No loss of consciousness. No pruritus, no skin ulcerations. Review of 14 systems completed, all others negative. PHYSICAL EXAMINATION GENERAL: Mr. Clancy is a 61-year-old male patient. He is sitting in the ER stretcher. He does not appear to be in any acute distress. VITAL SIGNS: Blood pressure 107/72, pulse 85, respirations 18, O2 sat 96%, temperature 97.4. HEENT: Head is atraumatic, normocephalic. Eyes: EOMs intact. Sclerae anicteric, not pale. Throat: Oral mucosa appears to be moist. No oropharyngeal erythema. NECK: Supple. LUNGS: Clear to auscultation bilaterally. No wheezes, rales, or rhonchi. HEART: Sounds S1, S2. Regular rate and rhythm. No murmurs, rubs or gallops. ABDOMEN: Soft, flat, nontender. Bowel sounds present. EXTREMITIES: Pulses were 2+ throughout. He is able to move all 4 extremities with 5/5 strength. NEUROLOGIC: The patient is awake, alert, and oriented x3. Tongue is midline. Bookkeeping Service Sales Agent are equal. No gross focal deficits. SKIN: Intact. DIAGNOSTIC STUDIES/LAB DATA: Labs today revealed WBC of 6.8, RBC of 4.66, hemoglobin 13.2, hematocrit of 40, and platelet count 270. The INR was 0.96, PTT of 32.0. Sodium 137, potassium 4.1, chloride 104, bicarb 26, BUN 15, creatinine 0.82, glucose 108, lactate 0.8, calcium 9.3, mag 2.0. Total bili 0.9 , AST 18, ALT 22, alk phos 88. Troponin was 0.01. His albumin was 4.0. His TSH was normal. Urine obtained, it showed trace ketones. He did have a chest x-ray obtained today, which revealed no radiographic evidence or presence of acute cardiac or pulmonary process. Postsurgical change is noted. He had an EKG obtained today which showed a normal sinus rhythm. No ST elevations or T-wave inversions were noted. It was reviewed to his previous EKG , which appeared to be similar. Old medical records were reviewed. ASSESSMENT AND PLAN: Mr. Clancy is a 61-year-old male patient coming into the ER today with complaints of chest discomfort. Because of his risk factors, we were asked to evaluate for admission. He will be admitted under observation status for: 1. Chest pain. At this point, he certainly has a history of coronary artery disease, former smoker. He did have pain with exertion but today's pain, sounds certainly that it could be musculoskeletal, it was reproducible, it was worse with moving his arms. He is chest pain free currently. EKG and troponins were negative. I did try getting a stress test set up for the patient. Unfortunately, he drank a cup of coffee today and took his beta blockers, so we are unable to do so. My plan at this point is to go ahead and cycle his troponins and place him on telemetry and then try to get an outpatient stress test set up for this patient, and I do have a call placed out to his assembler 1st shift, Dr. Baer. I did discuss in detail with the patient that we ruled him out for an myocardial infarction; however, he will need to be on bed, essentially limited activity until we try to set him up with an outpatient stress test and this has been ordered; hopefully, . 2. History of coronary artery disease. Continue his aspirin, statin, beta- wyatt therapy. 3. Chronic obstructive pulmonary disease. Continue meds as prescribed. 4. Hypertriglyceridemia. Continue his statin therapy. 5. DVT prophylaxis. He will be on heparin subcu. 6. Code status. Full code. 7. Fluids, electrolytes, and nutrition. He can have a heart-healthy diet. TIME SPENT: On the admission was approximately 60 minutes; greater than half the time was spent [id number] with the patient obtaining my history and physical, other half of the time was spent going over the plan of care with the patient and implementing the plan of care. I did discuss the plan of care with my attending, Dr. Bhatt; she is in agreement. GREGOR GORDON NP CC: Dr. Richard; Dr. Yuniel Baer* [id number]/[facility] #: [id number] ZULMA
[2016-11-28 19:21] VITALS: BP 130/90
[2016-11-28] MEDS ORDERED: Mometasone/Formoter 200/5 MDI INH SCH (21:00)
[2016-11-28] MEDS ORDERED: Metoprolol Tartrate TAB* 25 MG PO SCH (21:00)
[2016-11-29] MEDS ORDERED: Aspirin EC Low Dose* 81 MG TAB.EC PO SCH (09:00)
[2016-11-29] MEDS ORDERED: Atorvastatin* 40 MG TAB PO SCH (09:00)
--- NOTE | 2016-11-29 11:03 | DS ---
DISCHARGE SUMMARY: DATE OF ADMISSION: 11/28/16 DATE OF DISCHARGE: 11/28/16 PRIMARY CARE PROVIDER: Rosario Richard MD. ATTENDING PHYSICIAN WHILE IN THE HOSPITAL: Dina Bhatt MD * (report dictated by Gregor Gordon NP) PRINCIPAL DIAGNOSIS: Chest pain. SECONDARY DIAGNOSES: Include: 1. Coronary artery disease. 2. Hypertriglyceridemia. DISCHARGE MEDICATION: 1. Aspirin 81 mg at night. 2. Aspirin 162 mg in the morning. 3. Fexofenadine 1 tablet p.o. daily as needed. 4. Lopressor 25 mg p.o. b.i.d. 5. Advair 1 puff inhaled b.i.d. 6. Lipitor 40 mg daily. HISTORY OF PRESENT ILLNESS AND HOSPITAL COURSE: I refer you to my H and P dictated earlier today for details. In short, Mr. Clancy is a 61-year-old male patient that came into the ER today with complaints of chest discomfort. He states that the pain occurred after cardiac rehab and a strenuous workday. 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 He did both of these yesterday and then at 2100 hours last night, he had chest pain that was unrelenting throughout the entire night. It got worse with moving his arms and it felt worse when he touched his chest. He did give me the history that he had chest pain at times at work when he was doing his lifting and his normal duties and then it would go away when he sat down and he also at times did have shortness of breath with this, but he had never experienced this at cardiac rehab. He actually went to the Urgent Care and they transferred him here for evaluation. He had 3 negative troponins and he had EKGs, which were negative as well. The patient never had anymore chest pain since he has been here. I tried setting up a stress test for him today here in the hospital. Unfortunately, the patient had drank coffee this morning and he had taken his beta blockers, so we were unable to do a stress test. I did touch base with his primary complaint investigator and at this point we felt that we will rule him out with troponins and have him back for an outpatient stress test first thing on Thursday. I instructed the patient to not drink any coffee before the stress test and also to bring his metoprolol with him and not to take his a.m. dose on Thursday morning. I also instructed him to return for any chest pain, shortness of breath, fevers, chills, nausea, vomiting, or any worrisome symptoms. Again, he has remained chest pain free and it was felt that he could be discharged with outpatient followup and an outpatient stress test for the pain. He did have some atypical symptoms to his story. He remained stable while he was here. Here remained stable on telemetry. He had no events on telemetry. PHYSICAL EXAMINATION: Vital signs on discharge: Blood pressure 130/90, pulse 88, respirations 18, O2 sat 98%, and temperature 97.9. General: At this time, Mr. Clancy is a 61-year-old male patient. He appears well nourished and well developed. He does not appear to be in any acute distress. HEENT: Head atraumatic, normocephalic. Eyes: EOMs intact. Sclerae are anicteric and not pale. Throat: Oral mucosa appears to be moist. No oropharyngeal erythema. Neck: Supple. Heart: Sounds S1, S2. Regular rate and rhythm. No murmurs, rubs, or gallops. Lungs: Clear to auscultation. No wheezes, rales or rhonchi. Abdomen: Soft, flat, and nontender. Bowel sounds are present. Extremities: Pulses are 2+ throughout. No peripheral edema. He is able to move all 4 extremities with 5/5 strength. Neurological: The patient is awake, alert, and oriented x3. Claim Taker are equal. Tongue midline. No gross focal deficits. Skin: Grossly intact. DIAGNOSTIC STUDIES/LAB DATA: Labs today reveal 3 negative troponins. Sodium 137, potassium 4.1, chloride 104, bicarb 26, BUN 15, creatinine 0.82, glucose 108, lactic 0.8, calcium 9.0, and mag 2.0. Total bili 0.9, AST 18, ALT 22, and alk phos 80. Troponin of 0.01. Albumin of 4.0. TSH normal. Urine obtained, it was negative. Coags were negative. His INR 0.96. WBC is 6.8, RBC of 4.66, hemoglobin of 13.2, hematocrit of 40, and platelet count of 270. He had a chest x-ray, which revealed no radiographic evidence of presence of acute pulmonary process. He had an EKG today, which showed a normal sinus rhythm at a rate of 73, no ST elevation or T-wave inversions. Old medical records were reviewed. STATUS DURING HOSPITALIZATION: Observation. This is a complex medical case, I refer you to the medical records for further details. ISSUES TO BE ADDRESSED AT FOLLOWUP: 1. Chest pain: At this point, he is supposed to have an outpatient stress test on Thursday here. He will remain on light duty. I did explain to him this meant no long walks, no heavy lifting, no running, and no gym activity, and to essentially stay home for the weekend, and not be walking upstairs and do limited activity only, essentially to the bathroom or to feed himself. He, at this point, is to again be on limited nonstrenuous activity and he is not to return to work until after stress test. Again, further evaluation with Dr. Baer. He is also to return for any recurrence of symptoms such as chest pain, shortness of breath, fevers, chills, nausea, vomiting, or any worrisome symptoms. 2. Coronary artery disease: Continue his medications. 3. Issues to return to the hospital include, but are not limited to, chest pain , shortness of breath, fevers, chills, nausea and vomiting, chest pain, or any other worrisome symptoms. TIME SPENT: Time spent on the discharge was approximately 30 minutes, greater than half the time spent [id number] with the patient going over the discharge plan and the other half the time was spent implementing the discharge plan. I did discuss the discharge plan with my attending, Dr. Bhatt, she is in agreement. GREGOR GORDON NP CC: Dr. Richard; Dr. Baer* [id number]/[facility] #: [id number] [facility]
== END 2016-11-28 19:00 | disposition home or self-care (01) ==
LOC: ED 08:35 → MEDTELE 11:14
PROVIDERS: ADMIT Internal Medicine; ATTEND Internal Medicine
DX: R07.9 Chest pain, unspecified (principal); I25.10 Atherosclerotic heart disease of native coronary artery without angina pectoris; E78.1 Pure hyperglyceridemia; Z79.899 Other long term (current) drug therapy; Z79.82 Long term (current) use of aspirin; I25.2 Old myocardial infarction; J44.9 Chronic obstructive pulmonary disease, unspecified; Z95.1 Presence of aortocoronary bypass graft; Z87.891 Personal history of nicotine dependence; R06.02 Shortness of breath
CPT/HCPCS: 36415; 71010; 71020; 80053; 81003; 82550; 82553; 83605; 83735; 83880; 84436; 84443; 84484; 85025; 85610; 85730; 93005; 99284; A9270-GY; G0378